=== PATIENT | male | born 1985 | race Two or more races ===

== ENCOUNTER 2023-02-10 13:22 | Emergency (ER) | payer MEDICAID ==
[~2023-02-10] VITALS: Ht 170.2 cm; Wt 86.8 kg
[~2023-02-10 13:22] MED LIST: IBUP-1984 PO; PER10325T PO
[2023-02-10 13:34] VITALS: TEMP 98.4
--- NOTE | 2023-02-10 14:21 | NUR ---
patient requested blood sugar to be checked. blood sugar 557
[2023-02-10] MEDS ORDERED: insulin regular, human 10 units/0.1 ml syringe SQ ONE (15:00)
[2023-02-10] MEDS ORDERED: DOXY-411 PO (15:33)
[2023-02-10] MEDS ORDERED: METF-436 PO (15:33)
[2023-02-10] MEDS ORDERED: NAPR-56 PO (15:33)
--- NOTE | 2023-02-10 16:03 | NUR ---
rechecked blood sugar results were 527, ROGER Guzman was notified. PAC stated that getting it under control was not a priority at this time. PAC states that patient has an infection and isn't currently taking diabetic medications which is a result of it being so high at this time.
[2023-02-10 16:11] VITALS: BP 108/83; PULSE 107; RESP 18; O2SAT 98
--- NOTE | 2023-02-10 16:43 | NUR ---
NO INJURIES DECLARED BY PT.
== END 2023-02-10 16:11 | disposition home or self-care (01) ==
LOC: ER 13:23
DX: K04.7 Periapical abscess without sinus (principal); Z88.8 Allergy status to other drugs, medicaments and biological substances; Z88.5 Allergy status to narcotic agent; Z79.1 Long term (current) use of non-steroidal anti-inflammatories (NSAID); Z79.899 Other long term (current) drug therapy
CPT/HCPCS: 82948; 96372; 99283; J1815